=== PATIENT | male | born 1975 | race Caucasian/White ===

== ENCOUNTER 2023-11-01 09:21 | Outpatient (CLI) | payer BC, SELFPAY ==
[2023-11-01 10:11] LABS: Basophils Absolute Auto 0.1 K/mm3 (0.0-0.1); Basophils Percent Auto 0.6 % (0.2-1.2); Eosinophils Percent Auto 11.8 % (0-4.4); Hematocrit 48.7 % (42.0-52.0); Hemoglobin 16.6 g/dL (14.0-18.0); Immature Granulocyte Absolute 0.02 K/mm3 (0.00-0.031); Immature Granulocyte Percent A 0.2 % (0-0.5); Lymphocytes Absolute Auto 3.29 K/mm3 (0.9-3.2); Mean Corpuscular HGB Conc 34.1 g/dl (32-36); Mean Corpuscular Hemoglobin 30.9 pg (26-34); Mean Corpuscular Volume 90.7 fl (80-100); Mean Platelet Volume 10.3 fl (7.4-10.4); Monocytes Absolute Auto 0.5 K/mm3 (0.1-0.6); Neutrophils Absolute Auto 3.8 K/mm3 (1.3-6.7); Neutrophils Percent Auto 43.4 % (45.5-73.1); Platelet Count Result 247 k/mm3 (150-375); Red Blood Count 5.37 M/mm3 (4.6-6.20); Red Cell Distribution Width 12.3 % (11.5-14.5); White Blood Count 8.7 K/mm3 (4.5-10.0)
[2023-11-01 10:23] LABS: Alanine Aminotransferase 23 U/L (6-50); Albumin Level 4.6 g/dL (3.5-5.1); Alkaline Phosphatase 75 U/L (38-126); Anion Gap 11 mmol/L (4-12); Aspartate Amino Transferase 25 U/L (17-59); Bilirubin,Total 0.7 mg/dL (0.2-1.3); Blood Urea Nitrogen 10 mg/dL (9-20); Carbon Dioxide 28 mmol/L (22-30); Chloride 100 mmol/L (98-107); Cholesterol 197 mg/dL (0-200); Estimated Glomerular Filt Rate > 60; Glucose 94 mg/dL (65-110); HDL Direct 41 mg/dL; Potassium 3.8 mmol/L (3.4-5.0); Sodium 139 mmol/L (137-145); Triglycerides 190 mg/dL (<150)
[2023-11-01 10:34] LABS: LDL Cholesterol Direct 120 mg/dL
== END 2023-11-01 09:22 | disposition home or self-care (01) ==
LOC: ANHLAB 09:24
PROVIDERS: PCP Family Medicine; Visit Provider Family Medicine
DX: Z00.00 Encounter for general adult medical examination without abnormal findings (principal)
CPT/HCPCS: 36415; 80053; 80061; 85025

== ENCOUNTER 2025-01-09 11:17 | Outpatient (CLI) | payer BC, SELFPAY ==
[2025-01-09 11:36] LABS: Add Urine Microscopic? NO; Appearance Urine Clear (Clear); Glucose Urine UA Negative (Negative); Leukocyte Esterase Ur Negative LEU/UL (Negative); Nitrate Urine Negative (Negative); Specific Grav Ur 1.019 (1.001-1.035)
--- OUTSIDE RECORDS SUMMARY | 2025-01-09 11:38 | XMS_ITS | Clinical Summary ---
Author Organization [facility] Address [address] [place] [id number] Care Team Providers Care Warehouse Receiving Clerk Name Role Phone Dinora Sanchez MD Primary Care Provider [phone] Allergies No known active allergies Medications Multiple Vitamin (MULTIVITAMIN ADULT OR) Take 1 tablet by mouth daily. Active HYDROcodone-acet aminophen (NORCO) 5-325 MG tabletIndication s:Acute Pain < 7 Day Supply Take 1 tablet by mouth every 4 (four) hours as needed. Indications : Acute Pain < 7 Day Supply 20 tablet 02/08/2024 Active Active Problems No known active problems Social History Tobacco Use Types Packs/Day Years Used Date Smoking Tobacco: Former Cigarettes Smokeless Tobacco: Current Chew Tobacco Cessation:Ready to Q uit: Not Asked; Counseling Given: Not Answered Alcohol Use Standard Drinks/Week Comments Yes 0 (1 standard drink = 0.6 oz pur e alcohol) seldom Sex and Gender Information Value Date Recorded Sex Assigned at Not on file Legal Sex Male 7:59 PM CDT Gender Identity Not on file Sexual Orientation Not on file Last Filed Vital Signs Vital Sign Reading Time Taken Comments Blood Pressure 149/96 02/08/2024 6:10 PM [employer] Pulse 97 02/08/2024 6:10 PM [employer] Temperature 36.7 C (98 F) 02/08/2024 6:10 PM [employer] Respiratory Rate 18 02/08/2024 6:10 PM [employer] Oxygen Saturation 99% 02/08/2024 6:10 PM [employer] Inhaled Oxygen Concentration - - Weight 91.9 kg (202 lb 9.6 oz) 02/08/2024 1:20 P M [employer] Height 180.3 cm (5' 11) 02/08/2024 1:20 PM [employer] Body Mass Index 28.26 02/08/2024 1:20 PM [employer] Plan of Treatment Health Maintenance Due Date Last Done Comments Colorectal Cancer Screening Colonoscopy (10 Years) 1973 Annual Physical 1976 Hepatitis C 11/01/1991 DTaP, Tdap and Td Vaccines ( 1 - Tdap) 1992 Hepatitis B Vaccines (1 of 3 - 19+ 3-dose series) 1992 Pneumococcal Vaccine: 50+ Ye ars (1 of 1 - PCV) 11/01/2023 Zoster Vaccines (1 of 2) 11/01/2023 COVID-19 Vaccine (1 - 2024-2 6 season) 2024 Influenza Adult (#1) 2024 Hepatitis A Vaccines Aged Out No long er eligible based on patient's age to complete this topic Meningococcal B Vaccine Aged Out No l onger eligible based on patient's age to complete this topic Meningococcal Vaccine Aged Out No nata fe eligible based on patient's age to complete this topic RSV Immunizations Under 20 Months Aged Out No longer eligible based on patient's age to complete [place] [address] [facility] Care Teams Warehouse Receiving Clerk Relationship Specialty Start Date End Date Dinora Sanchez MD [address] [facility] [address] [place] [address] PCP - General FAMILY PRACTICE 01/24/24
== END 2025-01-09 11:18 | disposition home or self-care (01) ==
PROVIDERS: PCP Family Medicine; Visit Provider Physician Assistant Medical
DX: M54.50 Low back pain, unspecified (principal)
CPT/HCPCS: 81003

== ENCOUNTER 2025-01-09 11:34 | Outpatient (CLI) | payer BC, SELFPAY ==
--- NOTE | ~2025-01-09 | XR_ITS ---
XR lumbar spine 2-3V 01/09/2025 12:00 Indication: Low back pain Procedure: 3 views lumbar spine Comparison: No prior studies for comparison. Findings: Vertebral body heights are maintained. Mild disc narrowing at L5-S1. There is facet hypertrophy at L3-4, L4-5 and L5-S1. No evidence for spondylolisthesis. Pedicles intact. No acute fracture or traumatic malalignment. Impression: 1: Mild-moderate lumbar spondylosis. Reviewed, dictated and finalized at location O. Impression: 1: Mild-moderate lumbar spondylosis.
== END 2025-01-09 11:35 | disposition home or self-care (01) ==
LOC: MICIMG 11:35
PROVIDERS: PCP Family Medicine; Visit Provider Physician Assistant Medical
DX: M47.816 Spondylosis without myelopathy or radiculopathy, lumbar region (principal); M54.50 Low back pain, unspecified
CPT/HCPCS: 72100